=== PATIENT | female | born 1985 | race Two or more races ===

== ENCOUNTER 2019-01-04 09:50 | Inpatient (IN) | payer OTHER ==
[~2019-01-04] VITALS: Ht 157.5 cm; Wt 72.6 kg
[2019-02-05] MEDS ORDERED: OBSTETRIX ONE1 EACH PO (08:19)
== END 2019-02-06 10:08 | disposition home or self-care (01) | DRG 807 ==
LOC: OB/GYN 01-19 14:45 → ADM 01-19 14:45 → EDSTATUS 01-19 14:45 → LDR 02-04 09:01 → OB/GYN 02-04 13:40
PROVIDERS: ADMIT Obstetrics & Gynecology
PROC: 10E0XZZ Delivery of Products of Conception, External Approach (ICD-10-PCS; principal; 2019-02-04)
PROC: 0KQM0ZZ Repair Perineum Muscle, Open Approach (ICD-10-PCS; 2019-02-04)
PROC: 0W8NXZZ Division of Female Perineum, External Approach (ICD-10-PCS; 2019-02-04)
PROC: 4A1HXCZ Monitoring of Products of Conception, Cardiac Rate, External Approach (ICD-10-PCS; 2019-02-04)
DX: O70.1 Second degree perineal laceration during delivery (principal); Z37.0 Single live birth; Z3A.38 38 weeks gestation of pregnancy

== ENCOUNTER 2019-01-12 10:11 | Outpatient (CLI) | payer OTHER | END 2019-01-12 11:11 | disposition home or self-care (01) | LOC: NST 10:11 | DX: Z34.83 Encounter for supervision of other normal pregnancy, third trimester (principal) ==

== ENCOUNTER 2019-01-18 14:40 | Outpatient (CLI) | payer OTHER | END 2019-01-18 22:52 | disposition home or self-care (01) | LOC: NST 14:40 | DX: Z34.83 Encounter for supervision of other normal pregnancy, third trimester (principal) ==

== ENCOUNTER 2019-02-01 09:41 | Outpatient (CLI) | payer OTHER | END 2019-02-01 10:51 | disposition home or self-care (01) | LOC: NST 09:41 | DX: Z34.83 Encounter for supervision of other normal pregnancy, third trimester (principal) ==